=== PATIENT | male | born 1950 | race Caucasian/White ===

== ENCOUNTER 2024-04-24 14:43 | Emergency (ER) | payer OTHER, SELFPAY ==
[2024-04-24 14:51] VITALS: BP 171/92; PULSE 89; RESP 19; TEMP 37.2; O2SAT 94
[2024-04-24 14:52] VITALS: BMI 31.6
[2024-04-24 15:08] VITALS: PULSE 74; RESP 18; O2SAT 98
--- NOTE | 2024-04-24 15:20 | PC.NURSE ---
PT BIB BY [facility] FOR FALL AT HOME, PT HAD MULTIPLE FALLS TODAY, CALLED AMBULANCE, FIRE WENT OUT TODAY WELL FOR LIFT ASSIST, PT GSC 15 PER EMS PT IS ON BLOOD THINNERS. PT FELL OUT OF BED AND HIT HEAD.
--- NOTE | 2024-04-24 15:23 | XR_ITS ---
Examination: CT brain head without contrast. 2-D sagittal coronal reconstructions Date and time of exam:April 24, 2024 1603 hrs. Indications: Patient fell today with injury to the back of the head, head pain CTDI: vol (mGy):57.9 DLP: (mGycm):1182 Technique: Multiple CT axial sections of the brain have been obtained, 5 mm slice thickness. Contrast has not been administered. 2-D sagittal, coronal reconstructions have been obtained Low dose protocols were performed. One or more of the following dose reduction techniques were used; automated exposure control, adjustment of the mA and/or KV according to patient size, use of iterative reconstruction technique. Findings: No significant ventricular enlargement. Intra-axial or extra-axial hemorrhage density is not seen. No mass effect or midline shift Basal cisterns are not remarkable. Fourth ventricle is midline. Cranial vault intact. Impression: Negative for acute hemorrhage, mass effect or midline shift
--- NOTE | 2024-04-24 15:24 | EKG_ITS ---
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
--- NOTE | 2024-04-24 15:25 | PC.NURSE ---
PT IS AAOx4 WHEN SPEAKING WITH PT HE HAD SOME SLURRED SPEECH BUT WAS ABLE TO ANSWER ALL QUESTIONS, PT ADVISED HE FELL MULTIPLE TIMES, THE LAST TIME HE FELL WAS OUT OF BED WHEN HE HIT HIS HEAD HE WAS REACHING FOR SOMTHING. PT STATES HES ON BLOOD THINNER AND THINKS IS PLAVIX. PT IS COOPERATIVE AND ABLE TO UNDERSTAND
--- NOTE | 2024-04-24 15:25 | PD.EDFALL ---
ED Fall Injury RME/HPI General Chief Complaint: Fall Stated Complaint: FALL Time Seen by Provider: 04/24/24 15:12 Arrival date/time: 04/24/24 14:43 RME / HPI RME / HPI Narrative: DR. ROSALES MAIN ED EVALUATION: 73 year old male with past medical history significant for hypertension, diabetes, on Plavix once a day presents to the Emergency Department BIB from home with complaint of falling 3x out of bed, first time was last night, then this morning, then right before coming here. Patient states that last night the patient fell he hit his head. He states he falls trying to reach for something he needs and then falls. No loss of consciousness. He also has slurred speech and unsure when that started, but he states maybe last night. Right hand dominant. Related Data Home Medications ?Medication ?Instructions ?Recorded ?Confirmed alprazolam 1 mg tablet (Xanax) 1 mg PO BID PRN Anxiety 05/28/20 06/29/23 aspirin 81 mg tablet 81 mg PO QDAY 05/28/20 06/29/23 donepezil 5 mg tablet (Aricept) 10 mg PO QDAY 05/28/20 06/29/23 losartan 50 mg tablet 25 mg PO QDAY 05/28/20 06/29/23 alprazolam 1 mg tablet 1 mg PO BID 06/29/23 06/29/23 clopidogrel 75 mg tablet 75 mg PO QDAY 06/29/23 06/29/23 cyclobenzaprine 10 mg tablet 10 mg PO 3XD 06/29/23 06/29/23 diclofenac sodium 1 % topical gel 4 g topical QID 06/29/23 06/29/23 furosemide 40 mg tablet 40 mg PO QDAY 06/29/23 06/29/23 gabapentin 300 mg capsule 600 mg PO TID 06/29/23 06/29/23 hydrocodone 5 mg-acetaminophen 325 1 tab PO Q8H PRN Pain 06/29/23 06/29/23 mg tablet levothyroxine 75 mcg tablet 75 mcg PO QDAY 06/29/23 06/29/23 metformin 500 mg tablet 1,000 mg PO BID Diabetes 06/29/23 06/29/23 metoprolol tartrate 25 mg tablet 25 mg PO BID 06/29/23 06/29/23 nitroglycerin 0.4 mg sublingual 0.4 mg buccal [id number] PRN Chest 06/29/23 06/29/23 tablet Pain potassium chloride 20 mEq 20 meq PO QDAY 06/29/23 06/29/23 tablet,extended release sertraline 100 mg tablet 200 mg PO QDAY 06/29/23 06/29/23 vitamin B complex 1 cap PO QDAY 06/29/23 06/29/23 Previous Rx's ?Medication ?Instructions ?Recorded amoxicillin 875 mg-potassium 1 tab PO BID #20 tabs 12/25/23 clavulanate 125 mg tablet Allergies Allergy/AdvReac Type Severity Reaction Status Date / Time No Known Allergies Allergy Verified 04/24/24 15:07 Review of Systems Review of Systems Systems Reviewed: All systems reviewed, normal except as documented Narrative Review of Systems: GEN: No fever, no chills, no weight loss EYES: No discharge, no visual changes, no pain HEENT: No ear pain, no congestion, no sore throat PULM: No shortness of breath, no cough, no congestion CV: No chest pain, no dyspnea on exertion, no palpitations GI: No nausea, no vomiting, no diarrhea, no pain, no constipation : No frequency, no urgency and no dysuria MUSC/SKEL: No joint pain, no back pain SKIN: No rash PSYCH: No hallucinations, no depression HEME/LYMPH: No easy bleeding or bruising tendencies NEURO: No weakness, + head injury/ headache secondary to fall (see HPI), + slurred speech (see HPI) Past Medical History Past Medical History NEUROLOGIC: Positive Neurological Disorders, Dementia and Head Trauma; Negative Seizures CARDIAC: Positive Cardiac Disorders, Coronary Artery Disease, Congestive Heart Failure and Hypertension RESPIRATORY: Negative Chronic Obstructive Pulmonary Disease (COPD) or Asthma GASTROINTESTINAL: Positive Hemorrhoids and Obesity GENITOURINARY: Negative Genitourinary Disorders, Renal Disease or Benign Prostatic Hyperplasia MUSCULOSKELETAL: Positive Musculoskeletal Disorders and Fractures ENT: Positive History of ENT Problems, Glaucoma (HAD SURGERY RIGHT EYE) and Head Trauma ENDOCRINE: Positive Endocrine Disorders and Diabetes Mellitus Type 2; Negative Diabetes Mellitus Type 1 HEMATOLOGIC: Negative Blood Disorders or Sickle Cell Disease PSYCHO/SOCIAL: Positive Depression and Anxiety OTHER HISTORY: Positive Chicken Pox Family History FAMILY HISTORY: Positive Family Cancer Surgical History SURGICAL: Positive Cardiac Surgery and Coronary Artery Bypass Graft; Negative Vasectomy Social History SMOKING STATUS: Former smoker SUBSTANCE USE: does not use ALCOHOL: Never ED Exam Narrative Physical exam: GENERAL APPEARANCE: AxOx4, generally well-appearing, no acute distress. Slurred speech HEENT: NC, AT. MMM. EOMI, clear conjunctiva, oropharynx clear. NECK: Supple without lymphadenopathy. No stiffness or restricted ROM. HEART: Normal rate and regular rhythm, normal S1/S1, no m/r/g LUNGS: CTAB, moving air well. No crackles or wheezes are heard. ABDOMEN: Soft, nontender, nondistended with good bowel sounds heard. BACK: No midline C/T/L spine pain or deformity, No CVAT, no obvious deformity. EXTREMITIES: Without cyanosis, clubbing or edema. MUSCULOSKELETAL: FROM of all major joints, no chest tenderness NEUROLOGICAL: Slurred speech. Alert and oriented, moving all 4 extremities. CN not formally tested but appear grossly intact. Right hand dominant. Skin: Warm and dry without any rash. Course Course Course Narrative: 1800: Patient was signed out to Dr. Allison. Past medical, surgical, social and family history reviewed. Vitals and home medications reviewed. Results and treatment plan discussed. They will assume the care of the patient at this time and will follow the patient, pending placement. Quality Measures none Orders Category Date Time Status Dispersion Mixer Q4H START 00 Care 04/24/24 15:29 Active Consult Ensemble Member NOW Care 04/24/24 17:41 Active EKG (ED ONLY) *Do not use* NOW Care 04/24/24 15:24 Completed Referral Physical Therapy Stat Cons 04/24/24 17:[address] cervical spine wo con Stat Exams 04/24/24 15:[address] head/brain wo con Stat Exams 04/24/24 15:23 Completed EKG (ED Only) Stat Exams 04/24/24 15:24 Draft XR chest 1V Stat Exams 04/24/24 15:24 Completed Alcohol, Blood Medical Stat Lab 04/24/24 15:35 Completed CBC Stat Lab 04/24/24 15:35 Completed CMP [Comprehensive Metabolic Panel] Stat Lab 04/24/24 15:35 Completed Drug Screen,Urine Stat Lab 04/24/24 15:44 Completed Lactate (Lactic Acid) Stat Lab 04/24/24 15:35 Completed Partial Thromboplastin Time Stat Lab 04/24/24 15:35 Completed Procalcitonin Stat Lab 04/24/24 15:35 Completed Prothrombin Time with INR Stat Lab 04/24/24 15:35 Completed Troponin I Stat Lab 04/24/24 15:35 Completed Urinalysis Stat Lab 04/24/24 15:44 Completed Vital Signs Vital signs: Vital Signs Temperature 98.9 F 04/24/24 14:51 Pulse Rate 89 04/24/24 14:51 Respiratory Rate 19 04/24/24 14:51 Blood Pressure 171/92 H 04/24/24 14:51 Pulse Oximetry (%) 94 L 04/24/24 14:51 Oxygen Delivery Method Room Air 04/24/24 14:51 Fall MDM Narrative MDM Narrative:: 73-year-old male who has a challenging polypharmacy of benzodiazepines, opiates, and Plavix who has frequent falls. He had several falls over the course the last night and review of electronic medical record showed several visits for falls as well. Today there does not appear to be any traumatic injury after workup including head CT, C-spine CT, basic labs. After discussion with , as he is rather large, tall at 120 kg, she feels it is too dangerous for him at home given his falls. consumer services consultant were consulted with possible placement to long term facility. IKarla am scribing for and in the presence of Dr. Rosales. Patient data External records reviewed:: [facility] previous records (Reviewed last ED visit dated 01/02/24, discharged with the following: Weakness generalized) and EMS form Clinical information provided by:: patient and EMS Social determinants that could affect healthcare access:: none Patient has the following chronic illnesses:: hypertension, diabetes, on Plavix once a day How is presenting disease/condition affected by chronic disease/condition?: uneffected by Evaluation data The following diagnostics were reviewed and interpreted by me:: lab results, radiology exam(s) and EKG tracing(s) Lab and/or radiology exams considered but not ordered:: none Interpretation Summary: Procedure(s): XR chest 1V Accession Number(s): [id number] cc: Anson Rosales MD; Jeffry Mora MD~ Examination: AP chest single view Technique one AP portable semiupright chest single view Exam date and time: April 24, 2024 at 1615 hrs. Comparison January 02, 2024 Indications: Chest pain after falling today Findings: Mild prominence left ventricle No pneumothorax Clavicles ribs appear intact Median sternotomy wires Impression: No pneumothorax pulmonary contusion or hemothorax Dictated By: Jeffry Mora MD Procedure(s): CT cervical spine wo [facility] Accession Number(s): [id number] cc: Anson Rosales MD; Jeffry Mora MD~ Examination: CT cervical spine without contrast 2-D sagittal reconstructions 2-D coronal reconstructions 3-D reconstructions. Exam date and time:April 24, 2024 1603 hrs. Indications: Patient fell today with into the neck, neck pain CTDI:vol (mGy) 9.59 DLP: (mGycm) 242 Technique: Multiple 2 mm axial sections of the cervical spine have been obtained. The coronal and sagittal reconstructions have been obtained. 3-D reconstructions have been obtained. Low dose protocols were performed. One or more of the following dose reduction techniques were used; automated exposure control, adjustment of the mA and/or KV according to patient size, use of iterative reconstruction technique. Findings: Axial sections demonstrate intact base of the skull. C1 exhibit satisfactory relationship to the odontoid. No acute cervical vertebral body fracture seen. Alignment posterior spinous processes satisfactory. Impression: No acute cervical fracture. Dictated By: Jeffry Mora MD Procedure(s): CT head/brain wo con Accession Number(s): [id number] cc: Anson Rosales MD; Jeffry Mora MD~ Examination: CT brain head without contrast. 2-D sagittal coronal reconstructions Date and time of exam:April 24, 2024 1603 hrs. Indications: Patient fell today with injury to the back of the head, head pain CTDI: vol (mGy):57.9 DLP: (mGycm):1182 Technique: Multiple CT axial sections of the brain have been obtained, 5 mm slice thickness. Contrast has not been administered. 2-D sagittal, coronal reconstructions have been obtained Low dose protocols were performed. One or more of the following dose reduction techniques were used; automated exposure control, adjustment of the mA and/or KV according to patient size, use of iterative reconstruction technique. Findings: No significant ventricular enlargement. Intra-axial or extra-axial hemorrhage density is not seen. No mass effect or midline shift Basal cisterns are not remarkable. Fourth ventricle is midline. Cranial vault intact. Impression: Negative for acute hemorrhage, mass effect or midline shift Dictated By: Jeffry Mora MD Medications / Prescriptions Medications or Prescriptions considered but not ordered:: none Medication administrations:: see above if any Consultations Consultation(s) initiated? (list below): No Diagnosis Fall Differential Diagnosis: concussion without loss of consciousness and other (fall, brain bleed, dehydration) Most likely diagnosis given after review of the tests above:: see below Admission Indicated Admission indicated?: not indicated Admission Request Was there a request for admission?: No Disposition Plan Disposition Plan: other (specify) (Patient signout to the night supervisor provider, pending placement.) Discharge Plan Prescriptions/Referrals Prescriptions/Med Rec: No Action losartan 50 mg Tablet 25 mg PO QDAY donepezil [Aricept] 5 mg Tablet 10 mg PO QDAY alprazolam [Xanax] 1 mg Tablet 1 mg PO BID PRN (Reason: Anxiety) aspirin 81 mg Tablet 81 mg PO QDAY amoxicillin-pot clavulanate 875-125 mg tablet 1 tab PO BID Qty: 20 0RF hydrocodone-acetaminophen 5-325 mg Tablet 1 tab PO Q8H PRN (Reason: Pain) metformin 500 mg tablet 1,000 mg PO BID alprazolam 1 mg Tablet 1 mg PO BID cyclobenzaprine 10 mg Tablet 10 mg PO 3XD furosemide 40 mg Tablet 40 mg PO QDAY clopidogrel 75 mg Tablet 75 mg PO QDAY diclofenac sodium 1 % Gel 4 g TOPICAL QID Rx Instructions: apply to single knee, ankle, foot; for foot includes sole/toes/top of foot gabapentin 300 mg Capsule 600 mg PO TID sertraline 100 mg Tablet 200 mg PO QDAY Rx Instructions: take 2 tabs every morning levothyroxine 75 mcg Tablet 75 mcg PO QDAY metoprolol tartrate 25 mg Tablet 25 mg PO BID potassium chloride 20 mEq Tablet Extended Release 20 meq PO QDAY nitroglycerin 0.4 mg Tablet, Sublingual 0.4 mg BUCCAL [id number] PRN (Reason: Chest Pain) vitamin B complex Capsule 1 cap PO QDAY Referrals: No Primary/Family,Physician [Primary Care Provider] - In 1 week Problem List Clinical Impression: Benzodiazepine abuse, Opiate dependence, Falls frequently Patient/Caregiver Discharge Instructions Print Language: Monegasque
[2024-04-24 15:41] LABS: Lactate (Lactic Acid) 1.6 mMol/L (0.4-2.0)
[2024-04-24 15:44] LABS: Basophils # (Auto) 0.1 Thou/mm3 (0.0-0.2); Basophils % (Auto) 1 % (0-2.5); Eosinophils # (Auto) 0.1 Thou/mm3 (0.0-0.5); Eosinophils % (Auto) 2 % (0-10); Hematocrit 34.6 % (41.0-53.0); Hemoglobin 11.8 g/dL (13.5-16.0); Immature Granulocytes % (Auto) 0 % (0-0); Immature Granulocytes Auto 0.03 Thou/mm3 (0.00-0.00); Lymphocytes % (Auto) 13 % (10-50); Mean Corpuscular HGB Conc 34.1 g/dl (31.0-37.0); Mean Corpuscular Hemoglobin 30.3 pg (25.0-35.0); Mean Corpuscular Volume 89 fL (80-100); Monocytes # (Auto) 0.7 Thou/mm3 (0.0-0.8); Monocytes % (Auto) 9 % (0-12); Neutrophils # (Auto) 6.1 Thou/mm3 (1.8-7.7); Neutrophils % (Auto) 76 % (37-80); Nucleated Red Blood Cell % 0 /100 WBC (0); Platelet Count 135 Thou/mm3 (140-440); RDW Standard Deviation 43.7 fL (35.1-43.9)
[2024-04-24 15:59] LABS: Partial Thromboplastin Time 26.8 Seconds (22.0-36.0); Prothrombin Time 10.9 Seconds (9.0-12.2)
[2024-04-24 16:00] VITALS: BP 160/88; PULSE 84; RESP 20; TEMP 36.8; O2SAT 92
--- NOTE | 2024-04-24 16:09 | PC.CC ---
Machinery Repair Maintenance Supervisor, Annelise received a phone call from patient's , Teresa. Per Teresa, patient is diagnosed with dementia, cancer, COPD, and recently, he has been unable to ambulate. Patient is [facility] at [facility] percent. Teresa reported that she is not able to take care of him anymore. If he is not medically admitted, then she would like SNF placement. DEEJAY notified manager project management-Alma.
[2024-04-24 16:10] LABS: Collection Type, Urine Clean Catch
[2024-04-24 16:12] LABS: Alanine Aminotransferase 13 U/L (10-49); Albumin, Serum 4.5 gm/dL (3.4-4.8); Albumin/Globulin Ratio 1.7 (1.2-2.2); Alcohol, Blood Medical < 3.0 mg/dL (0-10.0); Alkaline Phosphatase 87 U/L (46-116); Anion Gap 9 (7-16); Aspartate Amino Transferase 36 U/L (0-34); BUN/Creatinine Ratio 7 Ratio (12-20); Bilirubin,Total 1.9 mg/dL (0.3-1.2); Blood Urea Nitrogen 9 mg/dL (9-23); Calcium 9.5 mg/dL (8.3-10.6); Calcium (Corrected) 9.5 mg/dL (8.5-10.1); Carbon Dioxide 26.2 mMol/L (20.0-31.0); Chloride 107 mMol/L (98-107); Creatinine (Component) 1.3 mg/dL (0.6-1.3); Estimated Creatinine Clearance 68.9 mL/min (>60); Globulin 2.7 gm/dL (2.3-3.5); Glucose 124 mg/dL (74-106); Osmolality,Calculated 282 (275-295); Potassium 4.7 mMol/L (3.4-5.1); Procalcitonin 0.13 ng/ml (0.0-0.49); Sodium 142 mMol/L (136-145); Total Protein 7.2 gm/dL (5.7-8.2); Troponin I < 0.020 ng/mL (0.0-0.045); eGFR 57 See Note
[2024-04-24 16:45] LABS: Bacteria,Urine Rare; Bilirubin,Urine Negative (Negative); Blood,Urine Negative (Negative); Color,Urine Lt-Yellow (Lt Yel-Yel); Glucose, Urine Negative (Negative); Ketones,Urine Negative (Negative); Leukocyte Esterase,Urine Negative (Negative); Nitrite,Urine Negative (Negative); Protein,Urine Negative (Neg - Trace); RBC,Urine 2 /hpf (0-3); Specific Gravity,Urine 1.011 (1.001-1.035); Squamous Epithelial Cell,Urine < 1 /hpf (0-5); Urobilinogen,Urine Negative mg/dL (0.0-1.0); WBC,Urine 2 /hpf (0-5)
[2024-04-24 16:52] LABS: Clarity,Urine Hazy (Clear/Hazy)
[2024-04-24 17:10] LABS: Amphetamine/Methamp Scrn,U Negative (Negative); Barbiturate Screen,Urine Negative (Negative); Benzodiazepines Screen,Urine Positive (Negative); Benzoylecgonine Screen, Ur Negative (Negative); Fentanyl Screen,Urine Negative (Negative); Opiate Screen,Urine Positive (Negative); THC Screen,Urine Negative (Negative)
--- NOTE | 2024-04-24 18:14 | PD.EDADDENDU ---
Emergency Room Addendum Addendum Narrative: 1800: Care assumed from Dr. Rosales. Past medical, surgical, social and family history reviewed. Vitals and home medications reviewed. Results and treatment plan discussed. I will assume the care of the patient at this time and will follow the patient, pending possible SNF placement. Please refer to the emergency department record for history and examination from initial visit. The following addendum documentation note is intended to reflect any pending information, findings, or radiology results not included in the patient?s initial chart. 0600: Care signed out to [facility] provider. Past medical, surgical, social and family history reviewed. Vitals and home medications reviewed. Results and treatment plan discussed. They will assume the care of the patient at this time and will follow the patient, pending possible SNF placement. MD Attestation Attestation Scribe Attestation: I, Elida Knutson, am scribing for and in the presence of Dr. Allison. Provider Notation: Although this document has been carefully reviewed, there may still be some phonetic and other typographical errors. These errors are purely grammatical due to imperfections in the software program and should not be construed in any way to compromise the substance of the patient's medical care during this visit.
--- NOTE | 2024-04-24 18:50 | PC.NURSE ---
Patient had large brown bm, patient cleaned. Clean dry brief and absorbent pad applied. Patient placed in POC. call ight within reach, patient has no other needs at this time.
[2024-04-24 18:58] VITALS: BP 158/102; PULSE 84; RESP 16; TEMP 36.7; O2SAT 89
[2024-04-24 18:59] VITALS: PULSE 84; RESP 22; RESP 89; O2SAT 94
[2024-04-24 23:48] VITALS: BP 141/93; PULSE 85; RESP 17; TEMP 36.6; O2SAT 98
[2024-04-25] VITALS (8 sets, daily range): BP systolic 127–175; BP diastolic 67–92; PULSE 79–95; RESP 16–18; TEMP 36.7–37; O2SAT 95–97
--- NOTE | 2024-04-25 02:33 | PC.NURSE ---
PT ASLEEP, NO COMPLAIN AT THIS TIME.
--- NOTE | 2024-04-25 03:48 | PC.NURSE ---
PT AWAKE , BEING ASSISTED TO BESIDE COMMODE, NO COMPLAINT.
--- NOTE | 2024-04-25 07:20 | PC.NURSE ---
Assume care for this Pt and got report from Qamar GALEANA, Pt currently waiting for placement fro SNF. Pt is a GCS of 15, A&O x4
--- NOTE | 2024-04-25 07:31 | EDNOTE_ITS ---
Emergency Room Addendum <Karla Serrato - Last Filed: 04/25/24 07:48> Addendum Narrative: 0600: Care assumed from Dr. Allison, the previous shift emergency physician. Past medical, surgical, social and family history reviewed. Vitals and home medications reviewed. I will assume the care of the patient at this time, pending SNF placement. The patient was placed in ED observation care at 04/25/2024 at 0600 hours. The patient was placed in ED observation care pending SNF placement. The patients past medical history, social history, and family history were reviewed. The plan of care will include serial examinations. Please refer to the emergency department record for history and examination.? While in ED observation the patient will have access to water, food, and personal hygiene. If the patient takes home medication(s), they will be continued in ED observation. Physical exam by me shows patient under no acute distress at this time. <Ede Winkler MD - Last Filed: 04/25/24 15:28> Addendum Narrative: 0600: Care assumed from Dr. Allison, the previous shift emergency physician. Past medical, surgical, social and family history reviewed. Vitals and home medications reviewed. I will assume the care of the patient at this time, pending SNF placement. The patient was placed in ED observation care at 04/25/2024 at 0600 hours. The patient was placed in ED observation care pending SNF placement. The patients past medical history, social history, and family history were reviewed. The plan of care will include serial examinations. Please refer to the emergency department record for history and examination.? While in ED observation the patient will have access to water, food, and perso nal hygiene. If the patient takes home medication(s), they will be continued in ED observation. Physical exam by me shows patient under no acute distress at this time. Patient appears to have some dementia and confusion but is comfortable throughout the day is having a little more agitation as of 1500 hrs. I asked the nurse to put all his usual medications and social media content manager still working on placement. Patient has been following had a medical workup that yesterday which reveals white count of 8.0 hemoglobin 11.8 PT/INR within normal is electrolytes are normal. BUN/creatinine are within normal limits. Glucose 124 lactic acid 1.6 total bilirubin slightly elevated 1.9 but if you look at the old ones it is very generally between 2.4 and less. Procalcitonin was negative urinalysis is unremarkable. Drug screen is positive for benzos and opiates. Patient has been medically clear and is pending halfway placement. Will restart his medicines to keep him comfortable until placement is made.
--- NOTE | 2024-04-25 11:18 | PC.LAC ---
Physical therapy at bedside assessing Pt at this time.
--- NOTE | 2024-04-25 11:36 | PC.CC ---
ASRosalva Bliss was contacted by patient's , Teresa Paul who reports she can no longer care for the patient as she has her own medical issues. Teresa reports the patient was diagnosed with dementia May 11, 2023 by the [facility] providers. ASW informed patient's that PT eval is pending and we will begin out search and make contact with the [facility] tomorrow. Patient's reports she will also be contacting the [facility].
--- NOTE | 2024-04-25 12:03 | PC.SS ---
PASRR Level 1 completed. Level 2 clearance needed. Soccer Referee contacted [facility] [phone] to complete Level 2 clearance. Per Delores MAIER, patient to be cleared by 1:00PM.
--- NOTE | 2024-04-25 15:57 | PC.CC ---
Patient was accepted with [facility]. ASW sent them a message to confirm that they are contracted with the [facility] via [facility] before we book. They have yet to respond.
--- NOTE | 2024-04-25 16:06 | PC.NURSE ---
I tried to verifying this Pt med rec and have been unable to get a hold of family, I also called the pharmacy any they were unable to verified all the Pt medication because they only have medication on file. Dr. Winkler made aware.
[2024-04-25] MEDS: ALPRazoLAM 0.25 MG TABLET 1 MG PO (16:47)
--- NOTE | 2024-04-25 17:24 | PC.CC ---
ASWRosalva made face to face contact with the patient introduced self, role, and reason for visit. Patient was provided with an update as to SNF placement and needing auth from [facility]. Patient reports this is something he and his Teresa had been discussing for some time. ASW ensured patient that manager social media would be following up with the [facility] tomorrow.
[2024-04-25] MEDS: DONEPEZIL HCL 5 MG TABLET 10 MG PO (21:04)
[2024-04-25] MEDS: CYCLObenzaPRINE 5 MG TABLET 10 MG PO (21:05)
[2024-04-25] MEDS: METOPROLOL TARTRATE 25 MG TABLET PO (21:05)
[2024-04-25] MEDS: GABAPENTIN 300 MG CAPSULE 600 MG PO (21:06)
[2024-04-26] VITALS (16 sets, daily range): BP systolic 130–164; BP diastolic 84–99; PULSE 63–80; RESP 16–20; TEMP 36.4–37; O2SAT 89–97
--- NOTE | 2024-04-26 06:16 | PD.EDADDENDU ---
Emergency Room Addendum Addendum Narrative: 1800: Care assumed from Ede Hoang. Past medical, surgical, social and family history reviewed. Vitals and home medications reviewed. Results and treatment plan discussed. I will assume the care of the patient at this time and will follow the patient, pending possible SNF placement. Please refer to the emergency department record for history and examination from initial visit. The following addendum documentation note is intended to reflect any pending information, findings, or radiology results not included in the patient?s initial chart. The patient continues in ED observation care at 04/25/2024 at 1800 hours. The patient was placed in ED observation care pending SNF placement. The patients past medical history, social history, and family history were reviewed. The plan of care will include serial examinations. While in ED observation the patient will have access to water, food, and personal hygiene. If the patient takes home medication(s), they will be continued in ED observation. Physical exam by me shows patient under no acute distress at this time. 0600: Care signed out to [facility] provider. Past medical, surgical, social and family history reviewed. Vitals and home medications reviewed. Results and treatment plan discussed. They will assume the care of the patient at this time and will follow the patient, pending possible SNF placement. MD Attestation Attestation Scribe Attestation: I, Elida Knutson, am scribing for and in the presence of Dr. Allison. Provider Notation: Although this document has been carefully reviewed, there may still be some phonetic and other typographical errors. These errors are purely grammatical due to imperfections in the software program and should not be construed in any way to compromise the substance of the patient's medical care during this visit.
--- NOTE | 2024-04-26 08:30 | PC.NURSE ---
Pt. here from home to room 19, pt. states he did 2 tours in [place] and as a result ended up with Dementia, pt. is a GCS of 15 at this time, pt. states he has bruising and pain from his toes to his head from falling. Pt. pointed to left hip but no bruising noted to left hip at this time. No s/s of distress noted. Pt. requesting coffee, breakfast tray given. Offered pt. a shower and pt. states he would love one after breakfast.
--- NOTE | 2024-04-26 08:35 | PC.SS ---
Addendum entered by Bijal Daniels 04/26/24 09:01: SS follow up note; SS was contacted by Veronica from [facility] and she informed SS that she [facility] all clinicals [facility] and at the time it's in review. Original Note: SS follow up note; ARIES contacted Veronica from [facility] in regards to auth update. Veronica reported that she will contact the [facility] and submit for auth. SS will stand by for further needs.
[2024-04-26] MEDS: ALPRazoLAM 0.25 MG TABLET 1 MG PO ×2 (10:12→21:39)
[2024-04-26] MEDS: METOPROLOL TARTRATE 25 MG TABLET PO ×2 (10:14→21:39)
[2024-04-26] MEDS: CYCLObenzaPRINE 5 MG TABLET 10 MG PO ×2 (10:18→21:38)
[2024-04-26] MEDS: ASPIRIN EC 81 MG TABEC PO (10:19)
[2024-04-26] MEDS: LEVOTHYROXINE SODIUM 25 MCG TABLET 75 MCG PO (10:19)
[2024-04-26] MEDS: GABAPENTIN 300 MG CAPSULE 600 MG PO ×2 (10:19→21:39)
[2024-04-26] MEDS: CLOPIDOGREL BISULFATE 75 MG TABLET PO (10:20)
[2024-04-26] MEDS: Furosemide 40 MG TABLET PO (10:20)
[2024-04-26] MEDS: LOSARTAN POTASSIUM 25 MG TABLET PO (10:20)
[2024-04-26] MEDS: POTASSIUM CHLORIDE 20 mEq TABCR PO (10:21)
--- NOTE | 2024-04-26 10:50 | PC.NURSE ---
Pt. back to room 19 , pt. took a shower and shaved. Pt. tolerated well, and states he feels so much better. Ricardo FERGUSON went with pt.
[2024-04-26] MEDS: SERTRALINE HCL 25 MG TABLET 200 MG PO (12:09)
[2024-04-26] MEDS: VITAMIN B COMPLEX TABLET 1 TAB PO (12:10)
--- NOTE | 2024-04-26 12:10 | PC.NURSE ---
Lunch tray given, pt. sitting up on side of bed, pt. tolerating well.
--- NOTE | 2024-04-26 17:32 | PD.EDADDENDU ---
Emergency Room Addendum Addendum Narrative: At 6 AM on 04/26/2024, the care of the patient was transferred to me from Dr. MUNGUIA, see her notes for complete H&P. Patient is waiting for placement at SNF. During my watch, he remained stable. Trae Harman MD
[2024-04-26] MEDS: HYDROcodone/APAP 5/325 TABLET 1 TAB PO (19:58)
[2024-04-26] MEDS: DONEPEZIL HCL 5 MG TABLET 10 MG PO (22:35)
[2024-04-27] VITALS (10 sets, daily range): BP systolic 110–162; BP diastolic 65–95; PULSE 64–76; RESP 17–19; TEMP 36.6–36.8; O2SAT 95–98
--- NOTE | 2024-04-27 05:28 | PC.NURSE ---
Pt asleep in [facility]. Appears to be comfortable. NAD. telesitter in place.
[2024-04-27] MEDS: GABAPENTIN 300 MG CAPSULE 600 MG PO ×2 (06:55→13:14)
[2024-04-27] MEDS: CYCLObenzaPRINE 5 MG TABLET 10 MG PO ×2 (06:55→13:15)
[2024-04-27] MEDS: LEVOTHYROXINE SODIUM 25 MCG TABLET 75 MCG PO (06:55)
--- NOTE | 2024-04-27 08:00 | PC.NURSE ---
breakfast tray provided.
--- NOTE | 2024-04-27 08:17 | PC.SS ---
Addendum entered by BENJI Marcano 04/27/24 14:03: ETA 3pm with [facility]. Updated bed side nurse. Addendum entered by BENJI Marcano 04/27/24 12:47: SS update: updated the patient and left a voicemail to notify patient's Teresa. Veronica at [facility] informs they could transport the patient later this afternoon and to provide an ETA for continuous pickling line pickler of the patient this afternoon. Updated charge nurse Jacquelin on status. Addendum entered by BENJI Marcano 04/27/24 12:30: SS update: received call from Veronica at [facility] that authorization was obtained for SNF placement. Addendum entered by BENJI Marcano 04/27/24 10:25: SS update: sent PT note to [facility] via [employer]. Veronica at [facility] informs she would follow up with [place] social human services assistants Marj Thomas to determine if patient meets SNF placement criteria. Original Note: SS update: ASW contacted Veronica with admissions at [facility], regarding an update on authorization status for SNF placement. Veronica informed that she submitted everything yesterday for authorization and is to [facility] the [facility] today for status update. Currently, the patient remains pending insurance authorization for SNF placement.
[2024-04-27] MEDS: ASPIRIN EC 81 MG TABEC PO (08:32)
[2024-04-27] MEDS: METOPROLOL TARTRATE 25 MG TABLET PO (08:33)
[2024-04-27] MEDS: CLOPIDOGREL BISULFATE 75 MG TABLET PO (08:33)
[2024-04-27] MEDS: Furosemide 40 MG TABLET PO (08:34)
[2024-04-27] MEDS: LOSARTAN POTASSIUM 25 MG TABLET PO (08:34)
[2024-04-27] MEDS: ALPRazoLAM 0.25 MG TABLET 1 MG PO (08:35)
[2024-04-27] MEDS: POTASSIUM CHLORIDE 20 mEq TABCR PO (08:35)
[2024-04-27] MEDS: VITAMIN B COMPLEX TABLET 1 TAB PO (08:37)
[2024-04-27] MEDS: metFORMIN 500 MG TABLET 1000 MG PO (08:37)
[2024-04-27] MEDS: SERTRALINE HCL 25 MG TABLET 200 MG PO (08:38)
--- NOTE | 2024-04-27 12:00 | PC.NURSE ---
LUNCH TRAY PROVIDED.
[2024-04-27] MEDS: HYDROcodone/APAP 5/325 TABLET 1 TAB PO (13:14)
--- NOTE | 2024-04-27 15:15 | PD.EDADDENDU ---
Emergency Room Addendum Addendum Narrative: I took over the care from Dr. MUNGUIA at 6 AM on 04/27/2024, see her notes for complete H&P and ED course. Patient was discharged to [facility]. During my watch, he remained stable. Trae Harman MD
== END 2024-04-27 15:24 | disposition skilled nursing facility (03) ==
PROVIDERS: Emergency Medicine; Emergency Provider Emergency Medicine
DX: F11.20 Opioid dependence, uncomplicated (principal); F13.10 Sedative, hypnotic or anxiolytic abuse, uncomplicated; F03.911 Unspecified dementia, unspecified severity, with agitation; M54.2 Cervicalgia; R07.9 Chest pain, unspecified; S09.90XA Unspecified injury of head, initial encounter; E11.9 Type 2 diabetes mellitus without complications; R29.6 Repeated falls; F03.90 Unspecified dementia, unspecified severity, without behavioral disturbance, psychotic disturbance, mood disturbance, and anxiety; I25.10 Atherosclerotic heart disease of native coronary artery without angina pectoris; I11.0 Hypertensive heart disease with heart failure; I50.9 Heart failure, unspecified; Z75.1 Person awaiting admission to adequate facility elsewhere; Z95.1 Presence of aortocoronary bypass graft; Z87.891 Personal history of nicotine dependence; Z79.02 Long term (current) use of antithrombotics/antiplatelets; W06.XXXA Fall from bed, initial encounter; Y92.003 Bedroom of unspecified non-institutional (private) residence as the place of occurrence of the external cause
CPT/HCPCS: 36415; 70450; 71045; 72125; 80053; 80307; 80320; 81001; 83605; 84145; 84484; 85025; 85610; 85730; 93005; 99284; A9270; G0480

== ENCOUNTER → 2024-05-21 | Outpatient (CLI) | payer OTHER, SELFPAY ==
--- NOTE | 2024-05-21 15:45 | XR_ITS ---
Examination: CT chest with intravenous contrast 2-D sagittal and coronal reconstructions Exam date and time: May 21, [address] chest December 25, 2023, CT chest June 29, 2023 INDICATIONS: Numerous soft nodular densities throughout the lungs on CT chest June 29, 2023, dyspnea shortness of breath months CTDI:vol (mGy) 16.6 DLP: (mGycm) 617 Technique: Multiple axial sections of the thorax have been obtained. Sections have been obtained, 3 mm slice thickness. Mediastinal and lung density settings have been obtained. Intravenous contrast administered, 30 cc Isovue-300. 2-D sagittal, coronal images obtained. Low dose protocols were performed. One or more of the following dose reduction techniques were used; automated exposure control, adjustment of the mA and/or KV according to patient size, use of iterative reconstruction technique. Findings: No thoracic degenerative aneurysm dilatation or dissection Significant calcification left anterior descending coronary artery No paratracheal tracheobronchial or bronchopulmonary adenopathy No pneumonia, pulmonary edema, pleural disease or current pulmonary nodules Cholelithiasis No pancreatic or adrenal mass Moderate bilateral renal parenchymal scar formation IMPRESSION: Significant calcification left anterior descending coronary artery No pneumonia, pulmonary edema, pleural disease or pulmonary nodules Cholelithiasis
== END | disposition home or self-care (01) ==
PROVIDERS: PCP Family Medicine; Referring Provider Nurse Practitioner; Visit Provider Nurse Practitioner
DX: I25.10 Atherosclerotic heart disease of native coronary artery without angina pectoris (principal); K80.20 Calculus of gallbladder without cholecystitis without obstruction
CPT/HCPCS: 71260; A4649; Q9967

== ENCOUNTER → 2024-06-07 | Outpatient (CLI) | payer OTHER, SELFPAY ==
--- NOTE | 2024-06-07 09:00 | XR_ITS ---
Examination: MRI brain without intravenous contrast. Date and time of exam: June 07, 2024 0925 hrs. Indications: Increasing ossification with frequent falls one year Technique: Multiple axial and sagittal images of the brain obtained. Siemens high-resolution 1.5 Jacqui short bore scanners utilized. Sagittal sections, T1-weighted, TR 500, TE 14, are performed. Axial sections proton-density and T2-weighted have been obtained. Inversion recovery axial images, TR 9, 260, TE 111, TI 2500. Diffusion weighted images, axial sections, TR 4800, TE 128, B value 1000 Axial sections, ADC map, TR 4800, TE 128 Findings: Enlargement of the sella turcica is not present. The optic chiasm and infundibular are not remarkable. Prepontine and interpeduncular cisterns are not enlarged. There is no localized enlargement of the medulla or rosa. Fourth ventricle and cerebellar tonsils appear normal in position. No subacute area of hemorrhage density is seen. Mass in the cerebellopontine angle region is not evident. Globes symmetrical. Orbital musculature including medial lateral rectus muscles do not exhibit abnormality. Diffusion-weighted images demonstrate no focus of restricted diffusion. Increased white matter signal prominent Mass effect upon the ventricular system is not identified. Impression: Negative for acute hemorrhage mass effect or midline shift No acute infarct Prominent chronic microvascular white matter change
== END | disposition home or self-care (01) ==
PROVIDERS: PCP Family Medicine; Referring Provider Family Medicine; Visit Provider Family Medicine
DX: R90.82 White matter disease, unspecified (principal)
CPT/HCPCS: 70551

== ENCOUNTER 2024-07-20 20:29 | Emergency (ER) | payer OTHER, SELFPAY ==
[2024-07-20 20:32] VITALS: BP 146/84; PULSE 111; RESP 20; TEMP 36.9; O2SAT 96
[2024-07-20 20:45] VITALS: PULSE 94; RESP 24; O2SAT 94; BMI 31.2
--- NOTE | 2024-07-20 21:00 | PC.NURSE ---
pt brought into er from home by ambulance for unwitnessed ground level fall. pt reports he stood up and bended over and got light headed. pt placed in room 18, alert and oriented to person place and time. pt denies any loc with fall. denies any injuries from fall. pt placed on monitor. call light in reach.
--- NOTE | 2024-07-20 21:13 | XR_ITS ---
Examination: CT cervical spine without contrast 2-D sagittal reconstructions 2-D coronal reconstructions 3-D reconstructions. Exam date and time:July 20, 2024 2135 hours INDICATIONS: Ground-level fall with injury to the neck, neck pain CTDI:vol (mGy) 11.9 DLP: (mGycm) 206 Technique: Multiple 2 mm axial sections of the cervical spine have been obtained. The coronal and sagittal reconstructions have been obtained. 3-D reconstructions have been obtained. Low dose protocols were performed. One or more of the following dose reduction techniques were used; automated exposure control, adjustment of the mA and/or KV according to patient size, use of iterative reconstruction technique. Findings: Axial sections demonstrate intact base of the skull. C1 exhibit satisfactory relationship to the odontoid. No acute cervical vertebral body fracture seen. Alignment posterior spinous processes satisfactory. Impression: No acute cervical fracture.
--- NOTE | 2024-07-20 21:13 | XR_ITS ---
Examination: CT brain head without contrast. 2-D sagittal coronal reconstructions Date and time of exam:July 20, 2024 2135 hours INDICATIONS: Patient fell today with injury to the head, head pain CTDI: vol (mGy):55.7 DLP: (mGycm):1121 Technique: Multiple CT axial sections of the brain have been obtained, 5 mm slice thickness. Contrast has not been administered. 2-D sagittal, coronal reconstructions have been obtained Low dose protocols were performed. One or more of the following dose reduction techniques were used; automated exposure control, adjustment of the mA and/or KV according to patient size, use of iterative reconstruction technique. Findings: No significant ventricular enlargement. Intra-axial or extra-axial hemorrhage density is not seen. No mass effect or midline shift Basal cisterns are not remarkable. Fourth ventricle is midline. Cranial vault intact. Impression: Negative for acute hemorrhage, mass effect or midline shift
--- NOTE | 2024-07-20 21:13 | XR_ITS ---
Examination: AP chest single view TECHNIQUE: AP portable semiupright chest single view Date and time: July 20, 20242124 hours Comparison April 24, 2024 INDICATIONS: Ground-level fall today with injury to the chest, chest pain FINDINGS: Mild prominence of ventricles No pneumothorax Clavicles ribs appear intact IMPRESSION: No pneumothorax pulmonary contusion or hemothorax
--- NOTE | 2024-07-20 21:15 | PD.EDADULT ---
ED General RME/HPI General Chief complaint: Fall Stated complaint: FALL Time Seen by Provider: 07/20/24 21:00 Arrival date/time: 07/20/24 20:29 CC: Ground-level fall after bending over to apple picker an object off the floor. The patient was using his walker. The patient states once he stood up he did not experience any lightheadedness but felt sudden dizziness in his legs and collapse, the patient did not lose consciousness he has no physical pain at this time. The patient states he is on blood thinners denies blurred vision seeing spots headache shortness of breath difficulty breathing or chest pain. Related Data Home Medications ?Medication ?Instructions ?Recorded ?Confirmed alprazolam 1 mg tablet (Xanax) 1 mg PO BID PRN Anxiety 05/28/20 04/25/24 aspirin 81 mg tablet 81 mg PO QDAY 05/28/20 04/25/24 donepezil 5 mg tablet (Aricept) 10 mg PO QDAY 05/28/20 04/25/24 losartan 50 mg tablet 25 mg PO QDAY 05/28/20 04/25/24 alprazolam 1 mg tablet 1 mg PO BID 06/29/23 04/25/24 clopidogrel 75 mg tablet 75 mg PO QDAY 06/29/23 04/25/24 cyclobenzaprine 10 mg tablet 10 mg PO 3XD 06/29/23 04/25/24 diclofenac sodium 1 % topical gel 4 g topical QID 06/29/23 04/25/24 furosemide 40 mg tablet 40 mg PO QDAY 06/29/23 04/25/24 gabapentin 300 mg capsule 600 mg PO TID 06/29/23 04/25/24 hydrocodone 5 mg-acetaminophen 325 1 tab PO Q8H PRN Pain 06/29/23 04/25/24 mg tablet levothyroxine 75 mcg tablet 75 mcg PO QDAY 06/29/23 04/25/24 metformin 500 mg tablet 1,000 mg PO BID Diabetes 06/29/23 04/25/24 metoprolol tartrate 25 mg tablet 25 mg PO BID 06/29/23 04/25/24 nitroglycerin 0.4 mg sublingual 0.4 mg buccal [id number] PRN Chest 06/29/23 04/25/24 tablet Pain potassium chloride 20 mEq 20 meq PO QDAY 06/29/23 04/25/24 tablet,extended release sertraline 100 mg tablet 200 mg PO QDAY 06/29/23 04/25/24 vitamin B complex 1 cap PO QDAY 06/29/23 04/25/24 Allergies Allergy/AdvReac Type Severity Reaction Status Date / Time No Known Allergies Allergy Verified 04/24/24 15:07 Review of Systems Review of Systems Narrative Review of Systems: GEN: No fever, no chills, no weight loss EYES: No discharge, no visual changes, no pain HEENT: No ear pain, no congestion, no sore throat PULM: No shortness of breath, no cough, no congestion CV: No chest pain, no dyspnea on exertion, no palpitations GI: No nausea, no vomiting, no diarrhea, no pain, no constipation : No frequency, no urgency, no dysuria MUSC/SKEL: No joint pain, no back pain SKIN: No rash PSYCH: No hallucinations, no depression HEME/LYMPH: No easy bleeding or bruising tendencies NEURO: No weakness, no headache Past Medical History Past Medical History NEUROLOGIC: Positive Neurological Disorders, Dementia and Head Trauma; Negative Seizures CARDIAC: Positive Cardiac Disorders, Coronary Artery Disease, Congestive Heart Failure and Hypertension RESPIRATORY: Negative Chronic Obstructive Pulmonary Disease (COPD) or Asthma GASTROINTESTINAL: Positive Hemorrhoids and Obesity GENITOURINARY: Negative Genitourinary Disorders, Renal Disease or Benign Prostatic Hyperplasia MUSCULOSKELETAL: Positive Musculoskeletal Disorders and Fractures ENT: Positive Glaucoma and Head Trauma ENDOCRINE: Positive Endocrine Disorders and Diabetes Mellitus Type 2; Negative Diabetes Mellitus Type 1 HEMATOLOGIC: Negative Blood Disorders or Sickle Cell Disease PSYCHO/SOCIAL: Positive Depression and Anxiety OTHER HISTORY: Positive Chicken Pox Family History FAMILY HISTORY: Positive Family Cancer Surgical History SURGICAL: Positive Cardiac Surgery and Coronary Artery Bypass Graft; Negative Vasectomy Social History SMOKING STATUS: Never smoker SUBSTANCE USE: does not use ED Exam Narrative Physical exam: [General: Obese not in any acute distress Head normocephalic, no step-off hematoma induration ulceration or crepitus HEENT: Eyes pupils are PERRLA EOMs are intact no entrapment mouth pink moist membranes uvula is midline swallow symmetrical phonation is normal no step-off in the upper or lower mandible with palpation. Nose no rhinorrhea or epistaxis, no facial asymmetry or bogginess. No raccoon's eyes or Arevalo sign. Neck is supple nontender full range of motion flexion extension and rotation. Chest equal chest rise nontender to palpation Respiratory: Clear to auscultation no wheezes crackles or rubs CV: Rate rhythm is regular no murmurs rubs or clicks Abdomen is distended secondary to body habitus soft nontender no masses positive bowel sounds all 4 quadrants Back: No CVA tenderness no spinous process tenderness from cervical spine thoracic and lumbar spine Skin: Intact no petechiae rash induration ulceration or crepitus Extremities: No pain with pelvic squeeze, is able to straight leg raise both lower extremities no pain with palpation, full range of motion of the upper extremities against resistance. Neuro: Awake alert oriented x3 Glascow coma 15 no focal deficits] Course Quality Measures none Orders Category Date Time Status CT cervical spine wo con Stat Exams 07/20/24 21:[address] head/brain wo con Stat Exams 07/20/24 21:13 Completed XR chest 1V Stat Exams 07/20/24 21:13 Completed Vital Signs Vital signs: Vital Signs Temperature 98.4 F 07/20/24 20:32 Pulse Rate 111 H 07/20/24 20:32 Respiratory Rate 20 07/20/24 20:32 Blood Pressure 146/84 H 07/20/24 20:32 Pulse Oximetry (%) 96 07/20/24 20:32 Oxygen Delivery Method Room Air 07/20/24 20:32 Discharge Plan Plan Patient Disposition: HOME (Self Care) Prescriptions/Referrals Prescriptions/Med Rec: No Action losartan 50 mg Tablet 25 mg PO QDAY donepezil [Aricept] 5 mg Tablet 10 mg PO QDAY alprazolam [Xanax] 1 mg Tablet 1 mg PO BID PRN (Reason: Anxiety) aspirin 81 mg Tablet 81 mg PO QDAY hydrocodone-acetaminophen 5-325 mg Tablet 1 tab PO Q8H PRN (Reason: Pain) metformin 500 mg tablet 1,000 mg PO BID alprazolam 1 mg Tablet 1 mg PO BID cyclobenzaprine 10 mg Tablet 10 mg PO 3XD furosemide 40 mg Tablet 40 mg PO QDAY clopidogrel 75 mg Tablet 75 mg PO QDAY diclofenac sodium 1 % Gel 4 g TOPICAL QID Rx Instructions: apply to single knee, ankle, foot; for foot includes sole/toes/top of foot gabapentin 300 mg Capsule 600 mg PO TID sertraline 100 mg Tablet 200 mg PO QDAY Rx Instructions: take 2 tabs every morning levothyroxine 75 mcg Tablet 75 mcg PO QDAY metoprolol tartrate 25 mg Tablet 25 mg PO BID potassium chloride 20 mEq Tablet Extended Release 20 meq PO QDAY nitroglycerin 0.4 mg Tablet, Sublingual 0.4 mg BUCCAL [id number] PRN (Reason: Chest Pain) vitamin B complex Capsule 1 cap PO QDAY Referrals: No Primary/Family,Physician [Primary Care Provider] - In 1 week Problem List Clinical Impression: Ground-level fall Patient/Caregiver Discharge Instructions Education Materials: ED Fall Dizziness Weakn Balance Print Language: Albanian Stand Alone Forms: Mendy Award Info., Patient Portal Info Letter PA/PRECINCT I POLICE SERGEANT Supervising Physician PA/PRECINCT I POLICE SERGEANT Supervising Physician: Rojelio Helm ENP [facility] Clinical Information Provided by patient and EMS Medical Records Reviewed [facility] and EMS Meds/Rx Considered, not Ordered None Labs/Rad/Tests considered, not Ordered None EKG EKG not done Imaging Imaging interpretation: interpreted by me Provider imaging interpretation(s): CT head and C-spine as interpreted by me read by radiology are negative for any acute finding Chest x-ray as interpreted by me read by radiology as negative for any acute finding. Radiology reports / interpretation(s): Patient has no acute finding and no deterioration in his neurologic status after reassessment at 2300, patient will be discharged home follow-up with a primary care provider. Patient is know to continue to use his walker on a regular basis, patient is to work slowly on building up strength, do not bend over lower than your waist to apple picker anything at this time. Follow-up with your primary care provider if there is a worsening of symptoms return immediately to the emergency room for reevaluation. Diagnosis Differential diagnosis: Closed head injury neck fracture rib fracture pulmonary contusion
[2024-07-20 22:58] VITALS: BP 143/73; PULSE 80; RESP 20; TEMP 36.4; O2SAT 95
--- NOTE | 2024-07-20 23:08 | PC.LAC ---
Called patients that patient is ready for discharge. Patients stated, I don't want him home he needs to be placed in a rehab center and I don't want to be irritated. I asked if she could speak to her and explain that to him. Patients agreed and spoke to patient. Notified charge nurse Qamar GALEANA that patient will need placement in the morning.
--- NOTE | 2024-07-20 23:08 | PC.NURSE ---
Called patients to notified her that patient is ready for discharge. Patients stated, I don't want him to come home he needs to be placed in a rehab center. I explain to that patient is alert and oriented and is requesting to speak to her. Patient agreed and spoke to patient. Notified charge nurse Qamar GALEANA that patient will need placement to rehab center in the morning.
--- NOTE | 2024-07-20 23:25 | PC.NURSE ---
PT CALLED ME AND TOLD ME ME THAT GET MR. LARIOS READY TO THE FRONT ER AND SHE WILL PICK HER UP.
== END 2024-07-20 23:34 | disposition home or self-care (01) ==
PROVIDERS: Emergency Provider Emergency Medicine
DX: R42 Dizziness and giddiness (principal); M54.2 Cervicalgia; R07.9 Chest pain, unspecified
CPT/HCPCS: 70450; 71045; 72125; 99284

== ENCOUNTER 2024-07-21 10:06 | Emergency (ER) | payer OTHER, SELFPAY ==
[2024-07-21] VITALS (8 sets, daily range): BP systolic 126–172; BP diastolic 61–96; PULSE 68–81; RESP 6–18; TEMP 36.6–36.9; O2SAT 93–97; BMI 31.0; BMI 13.0
--- NOTE | 2024-07-21 10:20 | XR_ITS ---
Examination: PA lateral chest 2 views TECHNIQUE: Upright PA lateral chest 2 views Date and time: July 21, 2024 1151 hours INDICATIONS: Onset acute chest pain today. FINDINGS: CABG. Minor prominence left ventricle No pneumonia or pulmonary edema Intact osseous structures IMPRESSION: No pneumonia or pulmonary edema
--- NOTE | 2024-07-21 10:20 | XR_ITS ---
Examination: CT soft tissue neck, without intravenous contrast. 2-D coronal reconstructions. 2-D sagittal reconstructions. Date and time of exam :July 21, 2024 1036 hours INDICATIONS: Injury to the neck last night, neck pain. CTDI: vol (mGy):818.3 DLP: (mGycm):553 Technique: 1.25 mm axial sections of the neck of the obtained. Coronal and sagittal reconstructions have been obtained. Low dose protocols were performed. One or more of the following dose reduction techniques were used; automated exposure control, adjustment of the mA and/or KV according to patient size, use of iterative reconstruction technique. Findings: Symmetrical optic globes Maxillary antra are clear No soft tissue hematoma Symmetrical parotid glands Symmetrical nasopharynx oropharynx Hyoid bone intact The larynx appears normal Thyroid lobes are not enlarged Normal epiglottis Please see the CT cervical spine report July 20, 2024 Cystic mass in the subcutaneous fatty tissue posterior neck, 30 x 30 mm IMPRESSION: Cystic mass in the subcutaneous fatty tissue posterior neck 30 x 30 mm which may represent an incidental cyst Recommend ultrasound soft tissue posterior neck follow-up
--- NOTE | 2024-07-21 10:32 | PC.NURSE ---
Patient gone to ct via wheelchair.
--- NOTE | 2024-07-21 11:00 | PC.NURSE ---
Patient back from ct and taken to room 1. Patient to er with c/o anterior neck pain s/p fall, patient noted to haver bruising and redness to that area. Patient states when he swallows he has increased pain and rates it at 5/10 at this time. Chart up to be seen by er provider, call light within reach.
--- NOTE | 2024-07-21 11:20 | PD.EDADULT ---
ED General RME/HPI General Chief complaint: Dental/Oral/Throat Stated complaint: THROAT INJURY FALLING INTO NIGHTSTAND Time Seen by Provider: 07/21/24 10:12 Arrival date/time: 07/21/24 10:06 RME / HPI RME / HPI narrative: MAIN ED EVALUATION: 73 year old male with past medical history significant for dementia and frequent falls presents to the Emergency Department with complaint of of anterior neck pain with erythema and contusion, possibly secondary to fall, unknown when; patient also reports it hurts when he swallows. He has history of frequent falls and unsure when he fell last; patient has dementia and is a poor historian. No headache. Other PMHx include hypertension and diabetes. He denies any headache, lightheadedness, chest pain, SOB, abdominal pain, any changes in bowel or bladder habit, leg swelling, fever or chills, nausea or vomiting. Related Data Home Medications ?Medication ?Instructions ?Recorded ?Confirmed alprazolam 1 mg tablet (Xanax) 1 mg PO BID PRN Anxiety 05/28/20 04/25/24 aspirin 81 mg tablet 81 mg PO QDAY 05/28/20 04/25/24 donepezil 5 mg tablet (Aricept) 10 mg PO QDAY 05/28/20 04/25/24 losartan 50 mg tablet 25 mg PO QDAY 05/28/20 04/25/24 alprazolam 1 mg tablet 1 mg PO BID 06/29/23 04/25/24 clopidogrel 75 mg tablet 75 mg PO QDAY 06/29/23 04/25/24 cyclobenzaprine 10 mg tablet 10 mg PO 3XD 06/29/23 04/25/24 diclofenac sodium 1 % topical gel 4 g topical QID 06/29/23 04/25/24 furosemide 40 mg tablet 40 mg PO QDAY 06/29/23 04/25/24 gabapentin 300 mg capsule 600 mg PO TID 06/29/23 04/25/24 hydrocodone 5 mg-acetaminophen 325 1 tab PO Q8H PRN Pain 06/29/23 04/25/24 mg tablet levothyroxine 75 mcg tablet 75 mcg PO QDAY 06/29/23 04/25/24 metformin 500 mg tablet 1,000 mg PO BID Diabetes 06/29/23 04/25/24 metoprolol tartrate 25 mg tablet 25 mg PO BID 06/29/23 04/25/24 nitroglycerin 0.4 mg sublingual 0.4 mg buccal [id number] PRN Chest 06/29/23 04/25/24 tablet Pain potassium chloride 20 mEq 20 meq PO QDAY 06/29/23 04/25/24 tablet,extended release sertraline 100 mg tablet 200 mg PO QDAY 06/29/23 04/25/24 vitamin B complex 1 cap PO QDAY 06/29/23 04/25/24 Previous Rx's ?Medication ?Instructions ?Recorded acetaminophen 325 mg tablet 650 mg (2 x 325 mg) PO QID PRN 07/21/24 pain #60 tabs Allergies Allergy/AdvReac Type Severity Reaction Status Date / Time No Known Allergies Allergy Verified 07/21/24 10:09 Review of Systems Review of Systems Systems Reviewed: All systems reviewed, normal except as documented Narrative Review of Systems: Constitutional: DENIES: fevers; Eyes: DENIES: loss of vision; Head/Ear/Nose: DENIES: loss of hearing. Throat and neck: POSITIVES: anterior neck pain with erythema and contusion possibly secondary to fall, unknown when; patient also reports it hurts when he swallows Cardiovascular: DENIES: chest pain, dyspnea, or syncope. Respiratory: DENIES: shortness of breath; Gastrointestinal: DENIES: rectal bleeding or melena. Genitourinary: DENIES: dysuria (painful or difficult urination); Musculoskeletal: DENIES: arthralgia (pain in a joint); Skin: DENIES: rash; Neurological: DENIES: loss of function or movement; Psychiatric: DENIES: recent major life stressor, emotional problem, illicit drug use or abuse; Endocrinology: DENIES: weight change,; Hematologic/Lymphatic: DENIES: abnormal bruising. Allergic/Immunologic: DENIES: urticaria (hives). Past Medical History Past Medical History NEUROLOGIC: Positive Neurological Disorders, Dementia and Head Trauma CARDIAC: Positive Cardiac Disorders, Coronary Artery Disease, Congestive Heart Failure and Hypertension RESPIRATORY: Negative Chronic Obstructive Pulmonary Disease (COPD) or Asthma GASTROINTESTINAL: Positive Hemorrhoids and Obesity GENITOURINARY: Negative Genitourinary Disorders, Renal Disease or Benign Prostatic Hyperplasia MUSCULOSKELETAL: Positive Musculoskeletal Disorders and Fractures ENT: Positive Glaucoma and Head Trauma ENDOCRINE: Positive Endocrine Disorders and Diabetes Mellitus Type 2 HEMATOLOGIC: Negative Blood Disorders or Sickle Cell Disease PSYCHO/SOCIAL: Positive Depression and Anxiety OTHER HISTORY: Positive Chicken Pox Family History FAMILY HISTORY: Positive Family Cancer Surgical History SURGICAL: Positive Cardiac Surgery and Coronary Artery Bypass Graft Social History SMOKING STATUS: Never smoker SUBSTANCE USE: does not use ALCOHOL: Never ED Exam Narrative Physical exam: General: No acute distress, Alert and Oriented x 3 HEENT: Moist mucous membranes, oropharynx clear Neck: Supple, No masses, No JVD, bruits over anterior neck, and swelling of 3 to 3 cm over the posterior neck base. CVS: S1S2 Regular rate and rhythm, No murmurs, rubs or gallops Lungs: Clear to auscultation with no accessory use, no wheeze no rhonchi Abd: Soft, NT/ND, +BS, no organomegaly Ext: No edema, warm and well perfused Skin: No rash Psych: Appropriate mood and affect Course Quality Measures none Orders Category Date Time Status Consult Owner Oral Surgeon NOW Care 07/21/24 10:26 Completed EKG (ED ONLY) *Do not use* NOW Care 07/21/24 10:20 Completed Nurse Swallow Screen X1 Care 07/21/24 13:09 Active Referral Physical Therapy Stat Cons 07/21/24 10:[address] soft tissue neck wo con Stat Exams 07/21/24 10:20 Completed EKG (ED Only) Stat Exams 07/21/24 10:20 Ordered XR chest 2V Stat Exams 07/21/24 10:20 Completed CBC Stat Lab 07/21/24 11:11 Completed Comprehensive Metabolic Panel Stat Lab 07/21/24 11:11 Completed Troponin I Stat Lab 07/21/24 11:11 Completed HYDROmorphone INJ [Dilaudid Inj] Med 07/21/24 12:58 Discontinued 1 mg IVP X1 ONE Vital Signs Vital signs: Vital Signs Temperature 97.9 F 07/21/24 10:12 Pulse Rate 80 07/21/24 10:12 Respiratory Rate 18 07/21/24 10:12 Blood Pressure 172/82 H 07/21/24 10:12 Pulse Oximetry (%) 95 07/21/24 10:12 Oxygen Delivery Method Room Air 07/21/24 10:12 Discharge Plan Prescriptions/Referrals Prescriptions/Med Rec: New acetaminophen 325 mg tablet 650 mg PO QID PRN (Reason: pain) Qty: 60 0RF No Action losartan 50 mg Tablet 25 mg PO QDAY donepezil [Aricept] 5 mg Tablet 10 mg PO QDAY alprazolam [Xanax] 1 mg Tablet 1 mg PO BID PRN (Reason: Anxiety) aspirin 81 mg Tablet 81 mg PO QDAY hydrocodone-acetaminophen 5-325 mg Tablet 1 tab PO Q8H PRN (Reason: Pain) metformin 500 mg tablet 1,000 mg PO BID alprazolam 1 mg Tablet 1 mg PO BID cyclobenzaprine 10 mg Tablet 10 mg PO 3XD furosemide 40 mg Tablet 40 mg PO QDAY clopidogrel 75 mg Tablet 75 mg PO QDAY diclofenac sodium 1 % Gel 4 g TOPICAL QID Rx Instructions: apply to single knee, ankle, foot; for foot includes sole/toes/top of foot gabapentin 300 mg Capsule 600 mg PO TID sertraline 100 mg Tablet 200 mg PO QDAY Rx Instructions: take 2 tabs every morning levothyroxine 75 mcg Tablet 75 mcg PO QDAY metoprolol tartrate 25 mg Tablet 25 mg PO BID potassium chloride 20 mEq Tablet Extended Release 20 meq PO QDAY nitroglycerin 0.4 mg Tablet, Sublingual 0.4 mg BUCCAL [id number] PRN (Reason: Chest Pain) vitamin B complex Capsule 1 cap PO QDAY Referrals: No Primary/Family,Physician [Primary Care Provider] - In 1 week Problem List Clinical Impression: Ground-level fall, Soft tissue injury of neck, Mild dementia, Elevated bilirubin Patient/Caregiver Discharge Instructions Discharge Activity: as per physical therapy Education Materials: Exercises to Prevent Falls, ED Mechanical Fall Additional Instructions: Please follow-up with your PCP within 1 week of discharge. Please get referral to psychiatrist for further evaluation. Please follow-up regarding cystic mass over base of your neck at back. You have been started on Tylenol 625 Mg up to 4 times a day as needed for pain. Continue taking all medicines as prescribed. -Recommended to return back to emergency department if your symptoms persists or worsens Print Language: Iranian Stand Alone Forms: Mendy Award Info., Patient Portal Info Letter Attestation Attestation I, Ede Winkler MD, have reviewed the history, exam, and assessment of the patient. I have evaluated the patient independently and agree with the plan of care documented by [ ]. All diagnostic studies were reviewed and discussed. I confirm the diagnosis as documented by the Resident. I was present during the Medical Decision Making for this patient. The patient's plan of care was created between myself and the Resident and consistent with our discussion of the patient's case. Patient had what appears to be an accidental fall though he does have polypharmacy issues looming. He contused his neck and had some pain with swallowing. Medical workup was negative he was able to swallow water although has some pain but appears the main issue is his feels she can no longer management home as he is at risk for falling and having confusion and therefore decision was made to make snf placement. enrollment services dean were engaged see Dr. Shukla's note and patient will be held in the ER until on July 21. MDM Narrative MDM hospital course: 73 year old male with past medical history significant for dementia and frequent falls presents to the Emergency Department with complaint of of anterior neck pain with erythema and contusion, possibly secondary to fall, unknown when; patient also reports it hurts when he swallows. He has history of frequent falls and unsure when he fell last; patient has dementia and is a poor historian. No headache. Other PMHx include hypertension and diabetes. He denies any headache, lightheadedness, chest pain, SOB, abdominal pain, any changes in bowel or bladder habit, leg swelling, fever or chills, nausea or vomiting. Vitals significant for blood pressure 172/82, pulse 80, RR 18, temperature 97.9, saturating 95% on room air. Labs revealed hemoglobin 11.6, creatinine 1.4 with baseline 1.1-1.2. GFR 52, total bilirubin 2.0, but denies any abdominal pain. CXR negative for pneumonia. Soft tissue neck CT revealed no fracture, and Cystic mass in the subcutaneous fatty tissue posterior neck, 30 x 30 mm. The patient was given hydromorphone 1 mg IV x 1. The patient was able to swallow liquid and Jello, and was recommended rehab facility placement by PT. The patient was plan to discharge to SNF. The patient's management plan was discussed with my attending physician MD Thong Hoang MD, PGY2 Clinical Information Provided by patient Medical Records Reviewed [facility] Meds/Rx Considered, not Ordered None Labs/Rad/Tests considered, not Ordered None Chronic Illness/Social Conditions Add or document further as needed: Dementia, frequent falls, hypertension,and diabetes. EKG EKG Interpretation narrative: EKG was significant for RBBB, consistent with previous finding. Lab Interpretation Labs: see narrative above Imaging Imaging interpretation: see narrative above Medication Administration(s) Medication Administration History Discontinued Medications Hydromorphone HCl (Hydromorphone Inj 2 Mg/Ml Vial) 1 mg IVP X1 ONE Stop: 07/21/24 12:59 Last Admin: 07/21/24 13:17 Dose: 1 mg Documented By: PADMINI Diagnosis Differential diagnosis: fall, neck contusion, fall
[2024-07-21 11:22] LABS: Basophils # (Auto) 0.1 Thou/mm3 (0.0-0.2); Basophils % (Auto) 1 % (0-2.5); Eosinophils # (Auto) 0.1 Thou/mm3 (0.0-0.5); Eosinophils % (Auto) 1 % (0-10); Hematocrit 34.2 % (41.0-53.0); Hemoglobin 11.6 g/dL (13.5-16.0); Immature Granulocytes % (Auto) 0 % (0-0); Immature Granulocytes Auto 0.04 Thou/mm3 (0.00-0.00); Lymphocytes # (Auto) 1.3 Thou/mm3 (1.0-4.8); Lymphocytes % (Auto) 13 % (10-50); Mean Corpuscular HGB Conc 33.9 g/dl (31.0-37.0); Mean Corpuscular Hemoglobin 31.1 pg (25.0-35.0); Mean Corpuscular Volume 92 fL (80-100); Monocytes # (Auto) 0.8 Thou/mm3 (0.0-0.8); Monocytes % (Auto) 8 % (0-12); Neutrophils # (Auto) 7.4 Thou/mm3 (1.8-7.7); Neutrophils % (Auto) 77 % (37-80); Nucleated Red Blood Cell % 0 /100 WBC (0); Platelet Count 158 Thou/mm3 (140-440); RDW Standard Deviation 48.2 fL (35.1-43.9); Red Blood Count 3.73 Miln/mm3 (4.50-5.90); White Blood Count 9.7 Thou/mm3 (3.8-10.6)
[2024-07-21 11:48] LABS: Alanine Aminotransferase 9 U/L (10-49); Albumin, Serum 4.5 gm/dL (3.4-4.8); Albumin/Globulin Ratio 1.7 (1.2-2.2); Alkaline Phosphatase 76 U/L (46-116); Anion Gap 10 (7-16); Aspartate Amino Transferase 21 U/L (0-34); BUN/Creatinine Ratio 6 Ratio (12-20); Blood Urea Nitrogen 9 mg/dL (9-23); Calcium 9.1 mg/dL (8.3-10.6); Calcium (Corrected) 9.1 mg/dL (8.5-10.1); Chloride 105 mMol/L (98-107); Creatinine (Component) 1.4 mg/dL (0.6-1.3); Estimated Creatinine Clearance 63.4 mL/min (>60); Globulin 2.7 gm/dL (2.3-3.5); Glucose 137 mg/dL (74-106); Osmolality,Calculated 285 (275-295); Potassium 4.1 mMol/L (3.4-5.1); Sodium 143 mMol/L (136-145); Total Protein 7.2 gm/dL (5.7-8.2); Troponin I < 0.020 ng/mL (0.0-0.045); eGFR 52 See Note
[2024-07-21] MEDS: HYDROmorphone INJ 2 MG/ML VIAL 1 MG IVP (13:17)
--- NOTE | 2024-07-21 13:18 | PC.NURSE ---
Patient able to drink water and eat jello without difficulty, will notify provider.
--- NOTE | 2024-07-21 14:00 | PC.NURSE ---
AMBULATED PT W/DR ALEXANDER, PT AMBULATED W/STEADY GAIT. ABLE TO GET HIMSELF OFF THE BED AND TO THE W/C. PT USED HANDLES OF WHEELCHAIR MAKESHIFT WALKER, ABLE TO WALK DOWN THE ROJAS AND BACK TO ROOM WITH NO HELP. PROVIDED PT A URINAL.
--- NOTE | 2024-07-21 15:10 | PC.CC ---
Patient is a 73 year-old male who presents to the hospital for throat injury falling into [facility]. ASWRosalva and BUILDING MOVER Student Araseli made [id number] contact with patient. ASW introduced self, role, and reason for visit. Patient appeared alert and oriented to self, location, and situation. Patient provided consent for BUILDING MOVER to remain in the room during assessment. Patient was pleasant and engaged in initial assessment. Patient confirmed information on demographics and reports to living with his , Teresa Paul . Patient reports his has Power of Sheet Folder and is also his medical surrogate. Patient reports he has been having difficulty with ambulation and has been unsteady. Patient disclosed that when he was able to ambulate he would use a walker but struggled. Patient reports to using oxygen only at night. He also has a C-Pap machine but does not use it as he does not know how to use the oxygen and C-PAP machine at the same time. Patient receives primary care with [facility]. Clark at [facility]. Upon d/c patient would like to go to a SNF preferrably [facility]. protective services officer to submit referral via [facility] for SNF Placement.
--- NOTE | 2024-07-21 15:54 | PC.NURSE ---
Patient lying in gurney quietly, no distress noted at this time, patient requesting jello, will notify provider.
--- NOTE | 2024-07-21 16:00 | PC.CC ---
ASWRosalva spoke to patient's , Teresa who reports she cannot take care of the patient any longer as he needs SNF due to multiple falls and generalized weakness. She provided case consultant Melisa ext [phone] and Deana Coyle ext [phone]. ASWRosalva made telephone contact with Marj Thomas and Deana who report that ASW can fax over clinicals and patient should be provided with authorization for SNF once accepted into a facility. ASW provided update to patient regarding pending accepting facility and made telephone contact with patient's to provide update information. ASW provided update to Dr. Winkler, guncotton packer Bev, and bedside KERVIN Hernandez.
--- NOTE | 2024-07-21 18:32 | PC.CM ---
Perla with [facility] reports [facility] able to [facility] the patient. Tracie with [facility] responded on [facility] and stated she can take patient but then called this fiction and nonfiction writer prose and informed her she cannot take the patient. [facility] is pending and [facility]. ASW will follow up with [facility] in AM and follow up with patient and patient's regarding which facility accepted and the facility patient prefers to be placed at.
--- NOTE | 2024-07-21 19:15 | PD.EDADDENDU ---
Emergency Room Addendum <Melisa Govea MD - Last Filed: 07/21/24 19:30> Addendum Narrative: 1800: Signed out pending placement. Care assumed from Dr. Winkler and Dr. Shukla , the previous shift emergency physician. Past medical, surgical, social and family history reviewed. Vitals and home medications reviewed. Results and treatment plan discussed. I will assume the care of the patient at this time and will follow the patient, pending SNF placement. The resident placed all the patient meds prior to going home at 1800. Patient resting comfortably in no acute distress. Please see orders written by the resident for all medications. 0600: Signed out to Dr. Ly pending placement <Sheila Bennett - Last Filed: 07/22/24 04:15> Addendum Narrative: 1800: Signed out pending placement. Care assumed from Dr. Winkler and Dr. Shukla , the previous shift emergency physician. Past medical, surgical, social and family history reviewed. Vitals and home medications reviewed. Results and treatment plan discussed. I will assume the care of the patient at this time and will follow the patient, pending SNF placement. The resident placed all the patient meds prior to going home at 1800. Patient resting comfortably in no acute distress. Please see orders written by the resident for all medications. 0600: Signed out to Dr. Ly pending placement.
[2024-07-21] MEDS: GABAPENTIN 300 MG CAPSULE PO (20:16)
[2024-07-21] MEDS: ASPIRIN EC 81 MG TABEC PO (20:16)
[2024-07-21] MEDS: HYDROcodone/APAP 5/325 TABLET 1 TAB PO (21:20)
[2024-07-21] MEDS: ALPRazoLAM 0.25 MG TABLET 1 MG PO (21:20)
[2024-07-22] VITALS (20 sets, daily range): BP systolic 123–170; BP diastolic 61–95; PULSE 61–84; RESP 8–27; TEMP 36.2–37; O2SAT 94–98
[2024-07-22] MEDS: GABAPENTIN 300 MG CAPSULE PO (09:11)
[2024-07-22] MEDS: ALPRazoLAM 0.25 MG TABLET 1 MG PO (09:11)
[2024-07-22] MEDS: DONEPEZIL HCL 5 MG TABLET 10 MG PO (09:12)
[2024-07-22] MEDS: SERTRALINE HCL 25 MG TABLET 200 MG PO (09:13)
--- NOTE | 2024-07-22 10:19 | PC.CC ---
Patient was accepted to [facility]. PASSR Level II is pending clearance. ASW made face to face contact with patient. ASW introduced self, role, and reason for visit. Patient appeared alert and oriented to self, location, and situation. This creative services writer informed patient he was accepted to [facility] in [place]. Patient is okay with going to [facility]. ASW informed patient that I would call his to provide updated information. ASW attempted to make telephone contact with patient's Teresa multiple times phone goes straight to . ASW provided patient with this information patient reports his is asleep he spoke to her earlier he asked that transpiration be arranged. ASW spoek to Marj who provided verbal authorization to Jade with [facility] she informed this creative services writer that she will not be able to provide authorization for transportation and we would have to arrange transportation. ASW obtained a SAMMI from cryptoanalysis teacher Yeny for transportation. Jade reports PASSR can be sent once it is cleared. ASW arranged transportation with [facility] for eta p/u 1400. ASW notified patient and will reattempt to make contact with .
--- NOTE | 2024-07-22 10:37 | PC.CC ---
ASW provided transportation time of 1430to patient and attempted to make contact with via telephone again left a voicemail to return call back.
--- NOTE | 2024-07-22 10:53 | PD.EDADDENDU ---
Emergency Room Addendum Addendum Narrative: 0600: Care assumed from Dr. Govea, the previous shift emergency physician. Past medical, surgical, social and family history reviewed. Vitals and home medications reviewed. I will assume the care of the patient at this time, pending secondary social studies teacher consultation for SNF placement. Please refer to the emergency department record for history and examination from initial visit.?The following addendum documentation note is intended to reflect any pending information, findings, or radiology results not included in the patient?s initial chart. 1010: Notified by secondary social studies teacher that the patient has been accepted at [facility]. 1600: EMS here to transfer patient. Patient transferred in stable condition.
[2024-07-22] MEDS: HYDROcodone/APAP 5/325 TABLET 1 TAB PO (11:12)
--- NOTE | 2024-07-22 11:29 | PC.NURSE ---
Patient Report given to Stanford at [facility]. PH: [phone]. Stanford notified that patient would be picked up from here at approx 14:30pm
--- NOTE | 2024-07-22 11:32 | PC.CC ---
ASW spoke to patient's , Teresa and provided updated information that patient is going to be going to [facility]. Patient's is receptive to patient going to [email or web address] and informed her of Transportation time.
== END 2024-07-22 16:00 | disposition skilled nursing facility (03) ==
PROVIDERS: Nurse Practitioner Primary Care; Emergency Provider Emergency Medicine
DX: S19.9XXA Unspecified injury of neck, initial encounter (principal); W18.30XA Fall on same level, unspecified, initial encounter; F03.A3 Unspecified dementia, mild, with mood disturbance; E11.9 Type 2 diabetes mellitus without complications; I10 Essential (primary) hypertension
CPT/HCPCS: 36415; 70490; 71046; 80053; 84484; 85025; 93005; 96374; 99284; J1171; A9270

== ENCOUNTER 2024-12-22 03:47 | Emergency (ER) | payer OTHER, SELFPAY ==
[2024-12-22] VITALS (7 sets, daily range): BP systolic 108–138; BP diastolic 76–91; PULSE 69–97; RESP 18–23; TEMP 36.3–37.1; O2SAT 95–97; BMI 28.5
--- NOTE | 2024-12-22 04:18 | XR_ITS ---
EXAMINATION: AP chest single view TECHNIQUE: AP portable upright chest single view Date and time: December 22, 2024, 0430 hours INDICATIONS: Chest pain after falling today. FINDINGS: Minor prominence of the ventricle Median sternotomy wires No pneumothorax No pulmonary edema Moderate osteopenia IMPRESSION: No pneumothorax pulmonary contusion or hemothorax No pneumonia or pulmonary edema
--- NOTE | 2024-12-22 04:18 | XR_ITS ---
Examination: Ribs, right, unilateral 3 views Exam date and time: December 22, 2024, 0430 hours INDICATIONS: Patient fell today with injury to the right chest, right rib pain Findings: No pneumothorax Prominent osteopenia Old appearing fracture right 10th rib anteriorly Impression: No pneumothorax pulmonary contusion or hemothorax Old appearing fracture right 10th rib anteriorly, clinical correlation advised
--- NOTE | 2024-12-22 04:19 | EDRME_ITS ---
Rapid Medical Screening Exam [facility] Arrival date/time: 12/22/24 03:47 Chief Complaint: Fall Vital signs: Vital Signs Temperature 98.1 F 12/22/24 04:06 Pulse Rate 76 12/22/24 04:06 Respiratory Rate 18 12/22/24 04:06 Blood Pressure 108/76 12/22/24 04:06 Pulse Oximetry (%) 97 12/22/24 04:06 Oxygen Delivery Method Room Air 12/22/24 04:06 [facility] Narrative: 74-year-old male who had a slip and fall accident landing on the right side of his chest this morning without hitting his head. No loss of consciousness. Only complains of right sided rib pain. No hip or lower extremity pain.
--- NOTE | 2024-12-22 04:54 | PD.EDFALL ---
ED Fall Injury RME/HPI General Chief Complaint: Fall Stated Complaint: fall Time Seen by Provider: 12/22/24 04:54 Arrival date/time: 12/22/24 03:47 RME / HPI RME / HPI Narrative: 74-year-old male who had a slip and fall accident landing on the right side of his chest this morning without hitting his head. No loss of consciousness. Only complains of right sided rib pain. No hip or lower extremity pain. Dr. Busby?s Main ED Evaluation: 74yo male with a history of dementia, CHF, HTN, HLD, CABG, DM BIBA from home presents to the ED for a fall. Patient was in the bathroom when he slipped and fell, landing on the right side of his chest. Patient endorses having right rib pain. Patient denies any head strikes or loss of consciousness. Denies any headache, neck pain, extremity pain, or any other associated symptoms. NKA. Related Data Home Medications ?Medication ?Instructions ?Recorded ?Confirmed alprazolam 1 mg tablet (Xanax) 1 mg PO BID PRN Anxiety 05/28/20 04/25/24 aspirin 81 mg tablet 81 mg PO QDAY 05/28/20 04/25/24 donepezil 5 mg tablet (Aricept) 10 mg PO QDAY 05/28/20 04/25/24 losartan 50 mg tablet 25 mg PO QDAY 05/28/20 04/25/24 alprazolam 1 mg tablet 1 mg PO BID 06/29/23 04/25/24 clopidogrel 75 mg tablet 75 mg PO QDAY 06/29/23 04/25/24 cyclobenzaprine 10 mg tablet 10 mg PO 3XD 06/29/23 04/25/24 diclofenac sodium 1 % topical gel 4 g topical QID 06/29/23 04/25/24 furosemide 40 mg tablet 40 mg PO QDAY 06/29/23 04/25/24 gabapentin 300 mg capsule 600 mg PO TID 06/29/23 04/25/24 hydrocodone 5 mg-acetaminophen 325 1 tab PO Q8H PRN Pain 06/29/23 04/25/24 mg tablet levothyroxine 75 mcg tablet 75 mcg PO QDAY 06/29/23 04/25/24 metformin 500 mg tablet 1,000 mg PO BID Diabetes 06/29/23 04/25/24 metoprolol tartrate 25 mg tablet 25 mg PO BID 06/29/23 04/25/24 nitroglycerin 0.4 mg sublingual 0.4 mg buccal [id number] PRN Chest 06/29/23 04/25/24 tablet Pain potassium chloride 20 mEq 20 meq PO QDAY 06/29/23 04/25/24 tablet,extended release sertraline 100 mg tablet 200 mg PO QDAY 06/29/23 04/25/24 vitamin B complex 1 cap PO QDAY 06/29/23 04/25/24 Previous Rx's ?Medication ?Instructions ?Recorded acetaminophen 325 mg tablet 650 mg (2 x 325 mg) PO QID PRN 07/21/24 pain #60 tabs Allergies Allergy/AdvReac Type Severity Reaction Status Date / Time No Known Allergies Allergy Verified 12/22/24 04:06 Review of Systems Review of Systems Systems Reviewed: All systems reviewed, normal except as documented Past Medical History Past Medical History NEUROLOGIC: Positive Neurological Disorders, Dementia and Head Trauma; Negative Seizures CARDIAC: Positive Cardiac Disorders, Coronary Artery Disease, Congestive Heart Failure and Hypertension RESPIRATORY: Negative Chronic Obstructive Pulmonary Disease (COPD) or Asthma GASTROINTESTINAL: Positive Hemorrhoids and Obesity GENITOURINARY: Negative Genitourinary Disorders, Renal Disease or Benign Prostatic Hyperplasia MUSCULOSKELETAL: Positive Musculoskeletal Disorders and Fractures ENT: Positive Glaucoma and Head Trauma ENDOCRINE: Positive Endocrine Disorders and Diabetes Mellitus Type 2; Negative Diabetes Mellitus Type 1 HEMATOLOGIC: Negative Blood Disorders or Sickle Cell Disease PSYCHO/SOCIAL: Positive Depression and Anxiety OTHER HISTORY: Positive Chicken Pox Family History FAMILY HISTORY: Positive Family Cancer Surgical History SURGICAL: Positive Cardiac Surgery and Coronary Artery Bypass Graft; Negative Vasectomy Social History SMOKING STATUS: Never smoker SUBSTANCE USE: does not use ED Exam Narrative Physical exam: Generally patient is alert and in no obvious distress, head is normocephalic atraumatic, no midline tenderness to the neck, heart regular rate and rhythm, lungs clear to auscultation equal bilaterally, chest wall shows very mild tenderness to the anterior and lateral rib cage on the right without crepitance or subcu air, no shortening or external rotation either lower extremity. No tenderness over the hips. No deformities or tenderness to any of the major joints of the upper extremities. Neurologic exam Glascow coma scale is 15 without focal neurologic deficit. Course Course Course Narrative: CXR is ordered to r/o pneumothorax. Quality Measures none Orders Category Date Time Status XR chest 1V portable Stat Exams 12/22/24 04:18 Taken XR ribs RT 2V Stat Exams 12/22/24 04:18 Taken Vital Signs Vital signs: Vital Signs Temperature 98.1 F 12/22/24 04:06 Pulse Rate 76 12/22/24 04:06 Respiratory Rate 18 12/22/24 04:06 Blood Pressure 108/76 12/22/24 04:06 Pulse Oximetry (%) 97 12/22/24 04:06 Oxygen Delivery Method Room Air 12/22/24 04:06 Fall MDM Narrative MDM Narrative:: Scribe Attestation: 12/22/24 - Kate Marie am scribing for and in the presence of Dr. Busby. Chest x-ray showed no pneumothorax. X-ray of the right ribs showed no fracture no dislocation. Patient stable for discharge. Patient data External records reviewed:: [facility] previous records (Per chart review, patient was seen here on 07/21/24 for elevated bilirubin.) and EMS form Clinical information provided by:: patient Social determinants that could affect healthcare access:: none Patient has the following chronic illnesses:: dementia, CHF, HTN, HLD, CABG, DM How is presenting disease/condition affected by chronic disease/condition?: uneffected by Evaluation data The following diagnostics were reviewed and interpreted by me:: radiology exam(s) Lab and/or radiology exams considered but not ordered:: none Interpretation Summary: See [facility] Medications / Prescriptions Medications or Prescriptions considered but not ordered:: none Medication administrations:: none Consultations Consultation(s) initiated? (list below): No Diagnosis Fall Differential Diagnosis: other (See MDM) Most likely diagnosis given after review of the tests above:: see clinical impression below Admission Indicated Admission indicated?: not indicated Admission Request Was there a request for admission?: No Disposition Plan Disposition Plan: Discharge Discharge Attestation Discharge Attestation: The patient and all family members were given an opportunity to ask questions and understood the discharge instructions. Discharge instructions specifically effects, indications for sooner follow up or return to the emergency department, and the expected course of current diagnosis. Patient condition: Stable Discharge Plan Plan Patient Disposition: HOME (Self Care) Prescriptions/Referrals Prescriptions/Med Rec: No Action losartan 50 mg Tablet 25 mg PO QDAY donepezil [Aricept] 5 mg Tablet 10 mg PO QDAY alprazolam [Xanax] 1 mg Tablet 1 mg PO BID PRN (Reason: Anxiety) aspirin 81 mg Tablet 81 mg PO QDAY hydrocodone-acetaminophen 5-325 mg Tablet 1 tab PO Q8H PRN (Reason: Pain) metformin 500 mg tablet 1,000 mg PO BID alprazolam 1 mg Tablet 1 mg PO BID cyclobenzaprine 10 mg Tablet 10 mg PO 3XD furosemide 40 mg Tablet 40 mg PO QDAY clopidogrel 75 mg Tablet 75 mg PO QDAY diclofenac sodium 1 % Gel 4 g TOPICAL QID Rx Instructions: apply to single knee, ankle, foot; for foot includes sole/toes/top of foot gabapentin 300 mg Capsule 600 mg PO TID sertraline 100 mg Tablet 200 mg PO QDAY Rx Instructions: take 2 tabs every morning levothyroxine 75 mcg Tablet 75 mcg PO QDAY metoprolol tartrate 25 mg Tablet 25 mg PO BID potassium chloride 20 mEq Tablet Extended Release 20 meq PO QDAY nitroglycerin 0.4 mg Tablet, Sublingual 0.4 mg BUCCAL [id number] PRN (Reason: Chest Pain) vitamin B complex Capsule 1 cap PO QDAY acetaminophen 325 mg tablet 650 mg PO QID PRN (Reason: pain) Qty: 60 0RF Problem List Clinical Impression: Fall, Rib pain on right side Patient/Caregiver Discharge Instructions Additional Instructions: You may take Tylenol and/or ibuprofen as needed for pain at home. Follow-up with your doctor. Return to ER as needed or if condition worsens. Print Language: [place] Stand Alone Forms: [facility] Award Info., Patient Portal Info Letter
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
--- NOTE | 2024-12-22 09:03 | PC.NURSE ---
Patient is alert and oriented x3, OOB, wanting to return home, per patient spouse will be picking him up from facility. Patient is confused to situation. Patient spoke with social worker masters. Call light is within reach will continue to monitor.
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
--- NOTE | 2024-12-22 10:27 | PC.PT ---
PT eval completed. Pls see PT eval notes.
--- NOTE | 2024-12-22 10:30 | PC.NURSE ---
Patient standing in room confused, unsteady gate, not making sense, patient awaiting placement, called for [facility], non available. Theodore will call with when one is available, Security will sit with patient. Called bottle house quality control technician will send sitter if one becones available, non available at this time.
--- NOTE | 2024-12-22 10:36 | EDNOTE_ITS ---
Emergency Room Addendum Addendum Narrative: The patient was queued for discharge by previous physician Dr. Busby. However, reported she is unable to care for him at home and is requesting SNF placement. The director social welfare was made aware and will evaluate the patient. Made aware by the director social welfare that the patient has been accepted at [facility] and pending insurance authorization. EMS p/u scheduled for 17:30h.
--- NOTE | 2024-12-22 10:36 | PD.EDADDENDU ---
Emergency Room Addendum Addendum Narrative: The patient was queued for discharge by previous physician Dr. Busby. However, reported she is unable to care for him at home and is requesting SNF placement. The social staff worker was made aware and will evaluate the patient. Made aware by the social staff worker that the patient has been accepted at [facility] and pending insurance authorization. EMS p/u scheduled for 17:30h.
--- NOTE | 2024-12-22 13:20 | PC.NURSE ---
Patient resting, no distress noted. Call light within reach.
--- NOTE | 2024-12-22 17:19 | PC.NURSE ---
RECEIVED PHONE CALL FROM [facility] DUE TO OVER FLOW OF EMS CALLS [place] NEED TO PUSH TRANSPORT TIME TO 1830.
--- NOTE | 2024-12-22 17:33 | PC.NURSE ---
RN CALLED AND SPOKE WITH DMITRIY TO INFORM PATIENT WAS PLACED AT [facility] IN [place] AND ETA OF 1830 GIVEN. SPOUSE AGREES WITH PLAN OF CARE.
--- NOTE | 2024-12-22 17:51 | PC.NURSE ---
Report given to John cowart at [facility], ETA given of 1830.
--- NOTE | 2024-12-22 18:26 | PC.NURSE ---
REPORT GIVEN TO [facility], TRANSPORT PATIENT TO [facility]. PATIENT AGREES WITH D/C TO FACILITY.
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
== END 2024-12-22 18:15 | disposition skilled nursing facility (03) ==
LOC: SERX 05:19
PROVIDERS: Emergency Provider Emergency Medicine
DX: R07.89 Other chest pain (principal); E11.9 Type 2 diabetes mellitus without complications; E78.5 Hyperlipidemia, unspecified; F03.90 Unspecified dementia, unspecified severity, without behavioral disturbance, psychotic disturbance, mood disturbance, and anxiety; I11.0 Hypertensive heart disease with heart failure; W01.0XXA Fall on same level from slipping, tripping and stumbling without subsequent striking against object, initial encounter
CPT/HCPCS: 71045; 71100; 99284; A9270